=== PATIENT | male | born 1940 | race Caucasian/White ===

== ENCOUNTER 2017-07-16 13:30 | Inpatient (IN) | payer MEDICARE ==
[2017-07-23] MEDS ORDERED: ACETAMINOPHEN 1,000 MG/100 ML BTL IV ONE (06:00)
[2017-07-23] MEDS ORDERED: MECLIZINE 25 MG TABLET PO ONE (06:00)
[2017-07-23] MEDS ORDERED: FAMOTIDINE 20MG TABLET PO ONE (06:00)
[2017-07-23] MEDS ORDERED: CEFAZOLIN 2 Gram 2 GM/50 ML BAG IVPB ONE (06:00)
[2017-07-23] MEDS ORDERED: METOCLOPRAMIDE 10 MG TABLET PO ONE (06:00)
[2017-07-23] MEDS ORDERED: HYDROCODONE/APAP 5/325MG TABLET PO PRN (10:15)
[2017-07-23] MEDS ORDERED: SENNOSIDES/DOCUSATE SODIUM UD CAPSULE PO PRN (10:15)
[2017-07-23] MEDS ORDERED: METOCLOPRAMIDE HCL 10 MG/2 ML VIAL IVP PRN (10:15)
[2017-07-23] MEDS ORDERED: MAGNESIUM HYDROXIDE 30 ML UDC PO PRN (10:15)
[2017-07-23] MEDS ORDERED: AL HYDROX/MAG HYDROX 30ML UD PO PRN (10:15)
[2017-07-23] MEDS ORDERED: DIPHENHYDRAMINE HCL 25 MG CAPSULE PO PRN (10:15)
[2017-07-23] MEDS ORDERED: ZOLPIDEM TARTRATE 5 MG TABLET PO PRN (10:15)
[2017-07-23] MEDS ORDERED: ONDANSETRON HCL IV 4 MG/2 ML VIAL IVP PRN (10:15)
[2017-07-23] MEDS: HYDROCODONE/APAP 5/325MG TABLET PO PRN ×3 (12:00→23:35)
[2017-07-23] MEDS ORDERED: MORPHINE SULFATE 4MG/ML PREFILLED SYRINGE IVP ONE (13:18)
[2017-07-23] MEDS: DULOXETINE HCL 30 MG CAPSULE.DR PO SCH (14:38)
[2017-07-23] MEDS: BUSPIRONE 5 MG TABLET PO SCH ×2 (14:38→22:17)
[2017-07-23] MEDS: ATORVASTATIN 20 MG TABLET PO SCH (14:39)
[2017-07-23] MEDS: PANTOPRAZOLE SODIUM 40 MG TABLET PO SCH (14:39)
[2017-07-23] MEDS: LEVOTHYROXINE SODIUM 100 MCG TABLET PO SCH (14:39)
[2017-07-23] MEDS: TAMSULOSIN HCL 0.4 MG CAP.ER.24H PO SCH (14:39)
[2017-07-23] MEDS: CARBIDOPA/LEVODOPA 25MG/100MG TABLET PO SCH ×2 (14:39→14:50)
[2017-07-23] MEDS ORDERED: PROPOFOL 10 MG/ML VIAL IV ONE (15:36)
[2017-07-23] MEDS ORDERED: *PACU ONLY* KETAMINE HCL 10 MG/ML (20ML) VIAL IV ONE (15:36)
[2017-07-23] MEDS ORDERED: SUGAMMADEX SODIUM 200 MG/2 ML VIAL IV ONE (15:36)
[2017-07-23] MEDS ORDERED: SEVOFLURANE 250 ML INH ONE (15:36)
[2017-07-23] MEDS ORDERED: EPHEDRINE SULFATE 50 MG/ML ML IV ONE (15:36)
[2017-07-23] MEDS ORDERED: LIDOCAINE 2% MDV (20MG/ML) 20ML VIAL IV ONE (15:36)
[2017-07-23] MEDS ORDERED: ROCURONIUM BROMIDE 50MG/5ML VIAL IV ONE (15:36)
--- NOTE | 2017-07-23 15:48 | Rehab Evaluation ---
Patient Information - Patient Information Diagnosis: OA left hip Ordered Treatment: PT Evaluate and Treat Status: Initial Evaluation Surgery: Yes (YANETH left) Date of Surgery: 07/23/17 Past Medical/Surgical Hx: PAST MEDICAL/SURGICAL HISTORY Past Surgical History Total right hip. Low back surgery. Upper back surgery. Carpal tunnel ban. Stent 2013 Triple bypass August 2016. PMH - Respiratory Hx Respiratory Disorders No Hx Sleep Apnea Yes Hx of CPAP No PMH - Cardiovascular Hx Cardiovascular Disorders Yes Hx Abnormal EKG Yes Hx Cardiac Catheterization Yes Hx Hypertension Yes: on meds good control Hx Pacemaker/Defibrillator Yes Hx Coronary Artery Disease Yes Hx Coronary Artery Bypass Yes: 2016 triple Graft Hx Coronary Stent Yes: x's 1 2015? Exercise Tolerance Fair PMH - Neuro Hx Neurological Disorders No Hx Headaches Yes: occassionally PMH - GI Hx Gastrointestinal Disorders No Hx Gastroesophageal Reflux Yes: controlled with meds PMH - Hx Genitourinary Disorders No Hx Kidney Stones Yes Hx Prostate Problems Yes: BPH PMH - Endocrine Hx Endocrine Disorders Yes Hx Diabetes Yes Hx Thyroid Disease Yes Hx of IDDM Yes: started insulin early 2016 Comment: A1C 6.5 PMH - Musculoskeletal Hx Musculoskeletal Disorders Yes Hx Arthritis Yes Comment: RLS left hip pain PMH - Psych Hx Psychiatric Problems No Hx Anxiety Yes Hx Depression Yes PMH - Hematology/Oncology Hx Hematology/Oncology No Disorders Hx Anemia Yes Hx Blood Transfusion Reaction No Social History: Detail (Patient lives in one story house with spouse. Plans to go home tomorrow. Had right hip done three years ago and still has a lot of items that will help with this surgery. Has two to three steps into house and shower bench, walker, cane. Normal height toilet seat but did not have any trouble last time. Has grab bars, tub/shower combination situation in bathroom, hand-held shower head. Patient already scheduled for outpatient PT here at [facility] for Thursday.) Precautions: [place], Fall - Time With Patient Total Time Spent With Patient (Min): 30 Treatment Procedures: Detail (Patient seen bedside, aide walking with patient to bathroom with FWW with patient moving along normally with WBAT about 20 feet from bed to bathroom, then 20 feet back to bed. Sat edge of bed and discussed hip precautions and patient did some exercises seated but very sore and fatigued so assisted patient to lie down with only slight assist with left LE into bed. Patient able to pull self up in bed with trapeze. Patient then performed more exercises for hip with good tolerance: heel slides, hip abduction gently, quad and glut sets and ankle pumps. Replaced tray table, compressive stockings for LES and call light close. Advised patient of times for PT and OT tomorrow.) Subjective Information - Subjective Information Per Patient (As above in history) Objective Data - Pain Pain Present: Yes Pain Scale Used: Numeric (1 - 10) (8/10) - Mental Status Patient Orientation: Oriented x3 - Visual Perception Appears within normal limits for therapeutic activities - ROM Within normal limits (except left hip decreased a little: flexion about 60 degrees, abduction 25 degrees. Did not assess other motions.) - Strength/Tone Within normal limits (except left hip about 3-/5) - Coordination Appears within normal limits for therapeutic activities (Able to ambulate safely with FWW and CGA) - Bed Mobility Needs Assist (Only needed slight assist with getting left leg into bed and out of bed. Up in bed with trapeze.) - Transfers Independent (Verbal cues only for safety sit to stand and stand to sit.) - Balance Balance Sitting: Good Balance Standing: Good - Sensation Intact - Gait Detail (Patient ambulated with FWW about 20 feet times two to bathroom and back to bed. Stood to use toilet.) - Special Tests No Therapy Assessment - Therapy Assessment Detail (Patient has quite a lot of pain yet but moving well and willing to walk and increase mobility.) Patient Education - Patient Education Teaching Topic: Equipment Use, Exercise/Activity Response: Return Demonstration Teaching Method: Discussion, Demonstration Teaching Recipient: Patient Barriers To Learning: None Problem List - Problem List Physical Therapy Problem List: Detail (Decreased functional mobility at this time but able to ambulate short distances already and did get to bathroom. Quite a lot of stiffness left hip yet as demonstrated with exercises and pain fairly high yet.) Goals - Goals Physical Therapy Goals: Patient will be able to safely move supine to sit to stand, perform exercises for hip and walk with walker community distances, perform steps so can go home safely tomorrow. Prognosis - Prognosis Good (Should do well with good night's rest. Says did not sleep well night before surgery.) Plan - Plan Physical Therapy Plan: Continue PT BID day after surgery for gait training, transfers and exercises, reviewing hip precautions as needed. If patient does not pass skills to be discharged home, may need to be seen another time, if stays another night.
[2017-07-23] MEDS: CEFAZOLIN 2 Gram 2 GM/50 ML BAG IVPB SCH (16:57)
[2017-07-23] MEDS: RINGERS SOLUTION,LACTATED 1,000 ML IV SCH ×2 (19:25→19:46)
[2017-07-23] MEDS ORDERED: HYDROMORPHONE HCL 2 MG/ML VIAL IVP ONE (19:56)
[2017-07-23] MEDS ORDERED: LEVEMIR FLEXTOUCH 100 UNIT/ML INSULIN PEN SQ SCH (22:00)
[2017-07-23] MEDS ORDERED: CARBIDOPA/LEVODOPA 25MG/100MG TABLET PO SCH (22:00)
[2017-07-23] MEDS: FERROUS SULFATE 325 MG TAB PO SCH (22:17)
[2017-07-23] MEDS: ASPIRIN 325 MG TAB ENTERIC-COATED PO SCH (22:17)
[2017-07-24] MEDS: CEFAZOLIN 2 Gram 2 GM/50 ML BAG IVPB SCH ×2 (00:36→09:35)
[2017-07-24] MEDS: RINGERS SOLUTION,LACTATED 1,000 ML IV SCH (04:26)
[2017-07-24] MEDS: HYDROCODONE/APAP 5/325MG TABLET PO PRN ×2 (06:01→13:23)
[2017-07-24] MEDS: PANTOPRAZOLE SODIUM 40 MG TABLET PO SCH (06:06)
[2017-07-24] MEDS: LEVOTHYROXINE SODIUM 100 MCG TABLET PO SCH (06:06)
--- NOTE | 2017-07-24 09:37 | Physical Therapy Tx Note ---
Physical Therapy Tx Note - Treatment Note Tolerated: Good Total Time Spent With Patient: 20 Physical Therapy Tx Note: Detail (The patient had complaints of level 5 pain in L hip. The patient acheived supine to sit independently following THR precautions. The patient was independent with sit to and from stand transfer.The patient ambulated independently with wheeled walker a distance of 13 feet x1,to bathroom and 50 feet WBAT on the L LE. The patient declined ambulating on the stairs this am. The patient requested to sit in a chair. The patient was left in chair with present and call light in reach. Nursing staff was notified.) Physical Therapy Problem List: Detail (Decreased functional mobility at this time but able to ambulate short distances already and did get to bathroom. Quite a lot of stiffness left hip yet as demonstrated with exercises and pain fairly high yet.) Physical Therapy Goals: Patient will be able to safely move supine to sit to stand, perform exercises for hip and walk with walker community distances, perform steps so can go home safely tomorrow. Physical Therapy Plan: Will see patient this afternoon for gait training on the stairs, anticipate discharge from inpatient PT this pm.
[2017-07-24] MEDS: BUSPIRONE 5 MG TABLET PO SCH (09:41)
[2017-07-24] MEDS: ASPIRIN 325 MG TAB ENTERIC-COATED PO SCH (09:42)
[2017-07-24] MEDS: FERROUS SULFATE 325 MG TAB PO SCH (09:42)
[2017-07-24] MEDS: TAMSULOSIN HCL 0.4 MG CAP.ER.24H PO SCH (09:44)
[2017-07-24] MEDS: ATORVASTATIN 20 MG TABLET PO SCH (09:45)
[2017-07-24] MEDS: DULOXETINE HCL 30 MG CAPSULE.DR PO SCH (09:48)
[2017-07-24] MEDS ORDERED: LISINOPRIL 5 MG TABLET PO SCH (10:00)
[2017-07-24] MEDS ORDERED: ACETAMINOPHEN 325 MG TAB PO PRN (10:15)
--- NOTE | 2017-07-24 12:00 | Rehab Evaluation ---
Patient Information - Patient Information Diagnosis: OA left hip Ordered Treatment: OT Evaluate and Treat Status: Initial Evaluation Surgery: Yes (YANETH left) Date of Surgery: 07/23/17 Past Medical/Surgical Hx: PAST MEDICAL/SURGICAL HISTORY Past Surgical History Total right hip. Low back surgery. Upper back surgery. Carpal tunnel ban. Stent 2013 Triple bypass August 2016. PMH - Respiratory Hx Respiratory Disorders No Hx Sleep Apnea Yes Hx of CPAP No PMH - Cardiovascular Hx Cardiovascular Disorders Yes Hx Abnormal EKG Yes Hx Cardiac Catheterization Yes Hx Hypertension Yes: on meds good control Hx Pacemaker/Defibrillator Yes Hx Coronary Artery Disease Yes Hx Coronary Artery Bypass Yes: 2016 triple Graft Hx Coronary Stent Yes: x's 1 2015? Exercise Tolerance Fair PMH - Neuro Hx Neurological Disorders No Hx Headaches Yes: occassionally PMH - GI Hx Gastrointestinal Disorders No Hx Gastroesophageal Reflux Yes: controlled with meds PMH - Hx Genitourinary Disorders No Hx Kidney Stones Yes Hx Prostate Problems Yes: BPH PMH - Endocrine Hx Endocrine Disorders Yes Hx Diabetes Yes Hx Thyroid Disease Yes Hx of IDDM Yes: started insulin early 2016 Comment: A1C 6.5 PMH - Musculoskeletal Hx Musculoskeletal Disorders Yes Hx Arthritis Yes Comment: RLS left hip pain PMH - Psych Hx Psychiatric Problems No Hx Anxiety Yes Hx Depression Yes PMH - Hematology/Oncology Hx Hematology/Oncology No Disorders Hx Anemia Yes Hx Blood Transfusion Reaction No Premorbid Status: Detail (Pt was independent with all I/ADL tasks prior to sx.) Social History: Detail (Patient lives in one story house with spouse and has 2- 3 steps to enter and no railings. Bathroom is equipped with a tub/shower, hand held shower head, grab bars (near toilet and in shower), shower bench (all 4 legs inside tub/shower), and standard toilet. He has a 2WW, cane, and a hip kit. ) Precautions: [place], Fall, Other (Hip Precaution for LLE) - Time With Patient Total Time Spent With Patient (Min): 20 Treatment Procedures: Detail (Initial Evaluation: Low Complexity. Pt left supine in bed with bedside table and call light in reach and all needs met. Spouse also present during evaluation.) Subjective Information - Subjective Information Per Patient (Pt reported that pain increased with supine>sit.) Objective Data - Pain Pain Present: Yes Pain Scale Used: Numeric (1 - 10) (Pt reported pain as 6/10 at rest in L hip.) - Visual Perception Appears within normal limits for therapeutic activities - ROM Within normal limits (BUE AROM WNL in all planes.) - Coordination Appears within normal limits for therapeutic activities - Bed Mobility Independent (Supine<>SS EOB CGA to guide BLE. Head of bed raised and use of bed rail for supine>SS EOB but SS EOB>Supine was completed without head of bed raised or use of bed rail.) - Transfers Independent (SS EOB<>standing with 2WW Indp. with proper hand placement.) - Balance Balance Sitting: Good Balance Standing: Fair (Requires use of walker for support at this time.) - ADL's/IADL's Detail (Educated pt regarding hip precautions, modified LB dressing techniques, and AE prior to participation in ADL tasks. Pt returned demonstration and verbalized understanding of hip precautions, modified LB dressing techniques, and AE. Pt donned pants and L sock Indp. while utilizing modified LB dressing techniques and AE (music coordinator, sock aid). Toileting completed with set up in SS EOB with use of urinal.) Therapy Assessment - Therapy Assessment Detail (ADL tasks completed Indp. and no longer requires inpatient skilled OT services at this time. Pt's home enviornment is set up with optimal adaptive equipment/devices to ensure maximal independence during recovery process.) Patient Education - Patient Education Teaching Topic: Precautions, Other (Modified LB dressing techniques and AE ( music coordinator, sock aid)) Response: Return Demonstration, Verbalize Understanding Teaching Method: Discussion, Demonstration Teaching Recipient: Patient, Family Barriers To Learning: None Problem List - Problem List Physical Therapy Problem List: Detail (Decreased functional mobility at this time but able to ambulate short distances already and did get to bathroom. Quite a lot of stiffness left hip yet as demonstrated with exercises and pain fairly high yet.) Goals - Goals Physical Therapy Goals: Patient will be able to safely move supine to sit to stand, perform exercises for hip and walk with walker community distances, perform steps so can go home safely tomorrow. Prognosis - Prognosis Good (Pending adherence to hip precautions.) Plan - Plan Physical Therapy Plan: Will see patient this afternoon for gait training on the stairs, anticipate discharge from inpatient PT this pm. Occupational Therapy Plan: D/C from inpatient skilled OT services at this time. Pt reported having no questions or concerns regarding return home.
--- NOTE | 2017-07-24 13:24 | Physical Therapy Tx Note ---
Physical Therapy Tx Note - Treatment Note Tolerated: Good Total Time Spent With Patient: 20 Physical Therapy Tx Note: Detail (The patient was up in a chair when PT arrived. The patient was independent with sit to stand transfer and ambulated 50 feet x 1 WBAT on the L LE. The patient ambulated on 3 steps with verbal cue to technique and supervision for safety. The patient returned to his room and was left with and nursing staff.) Physical Therapy Problem List: Detail (Decreased functional mobility at this time but able to ambulate short distances already and did get to bathroom. Quite a lot of stiffness left hip yet as demonstrated with exercises and pain fairly high yet.) Physical Therapy Goals: GOALS MET:Patient will be able to safely move supine to sit to stand, perform exercises for hip and walk with walker community distances , perform steps so can go home safely tomorrow. Physical Therapy Plan: All inpatient PT goals have been met. The patient is to continue with outpatient PT tomorrow.
--- NOTE | 2017-07-27 12:20 | Operative Note ---
DATE OF SURGERY: 07/23/2017 Surgeon: Mj Fitzpatrick DO PREOPERATIVE DIAGNOSIS: Primary osteoarthritis of the left hip. POSTOPERATIVE DIAGNOSIS: Primary osteoarthritis of the left hip. OPERATION: Left total hip arthroplasty. DESCRIPTION OF PROCEDURE: This 77-year-old male was taken to the operating room and placed in the supine position on the operating room table. General anesthesia was induced. He was then placed in the right lateral decubitus position, bolstered perpendicular to the floor, and all bony prominences well padded. The left hip was prepped with Hibiclens and draped in the usual sterile fashion. All scrub personnel wore personal isolation suits. A lateral hip incision was made dissecting down through the skin and subcutaneous tissue. Hemostasis was obtained with the electrocautery. The tensor was split in line with the skin incision. The gluteus natasha muscle was also split and a self-retaining hip retractor was placed. Subsequently, incision was made in the short rotators, and these were divided from the posterior aspect of the neck of the femur and exposure was excellent after we elevated the gluteus medius, placed a 964 Steinmann pin superiorly above the hip to be used as a retractor. Two additional Steinmann pins were placed, one posterosuperiorly and one posteroinferiorly. A tracy was made in the greater trochanter and measured to the proximal pin. This distance was restored at the completion of the procedure. The hip was dislocated and the neck amputated. A Cobra retractor was placed anteriorly. Significant osteophyte formation was present posteroinferiorly and this was removed with an osteotome. We started reaming with a 46 mm reamer up to a size 50 in 1 mm increments. Two small cysts were noticed in the acetabulum. These were curetted and filled with bone from the reamer. The trial liner was subsequently placed and this was seen to be the appropriate size. Subsequently a size 50 Trident cup was impacted into place at about 40 degrees of abduction and approximately 15-20 degrees of anteversion. The cup was solid. The trial liner was subsequently placed. We then directed our attention to the proximal femur and using a box osteotome, we cut the proximal femur and subsequently passed a hand silvering supervisor down the shaft. The only broach that we could really get down was a size 5. Subsequently a size 5 broach was used to trial, and this was very tight. Subsequently a size +2.5 head was used which restored anatomic length with excellent stability of the hip. For added security, we elected to place a 10-degree hooded liner posterosuperiorly. Subsequently, trial components were removed and the hip again copiously irrigated with pulse lavage, lactated Ringer's solution. The 10-degree hooded X3 liner was impacted into place with the morin in the posterosuperior position. We subsequently placed a size 5 collared Secur-Fit femoral component followed by the insertion of a size 36 mm +2.5 L fit head. Once this had been impacted into place, the hip was reduced and again taken through range of motion and found to be stable. The wound copiously irrigated with pulse lavage, lactated Ringer's solution, and a drain placed through a separate stable incision. The short rotators were repaired with #5 Ethibond suture through drill holes through the posterior aspect of the greater trochanter. We then closed the tensor with a #2 Vicryl, the subcutaneous tissue closed with 0 Vicryl, skin was stapled. Sterile dressings were applied and the patient taken to the recovery room in satisfactory condition. GROSS PATHOLOGY: This patient demonstrated severe osteoarthritis, full-thickness articular cartilage loss being noted. In addition, marked osteophyte formation was present posteroinferiorly on the left hip. CC: Lonnie Monroy MD [facility] [facility]
--- NOTE | 2017-07-27 12:21 | Discharge Summary ---
DATE OF SERVICE: 07/24/2017. DATE OF ADMISSION: 07/23/2017. DATE OF DISCHARGE: 07/24/2017. ADMITTING DIAGNOSIS: Osteoarthritis of the left hip. DISCHARGE DIAGNOSIS: Osteoarthritis of the left hip. OPERATIVE PROCEDURE: Elective left total hip arthroplasty. HOSPITAL COURSE: This 77-year-old male was taken to the operating room and placed in supine position on the operating room table, then placed in the right lateral decubitus position, where the surgery was performed without difficulty. A drain was placed during the time of the surgery and removed the 1st postoperative day. His pain was controlled with narcotic medication, and was discharged home with [place] 5/325 mg #80 1 or 2 every 6 hours as necessary for pain. He was instructed to take his aspirin the 81 mg daily at home. He was instructed to weak his SRIDHAR hose during the day and remove them at night. He will have outpatient physical therapy. Routine wound care instructions were given, and he will follow up in 2 weeks. Should he have any problems prior to being seen, he was instructed to call my office. FIORELLA
== END 2017-07-24 15:40 | disposition home or self-care (01) | DRG 470 ==
LOC: MEDSURG 07-23 05:47
PROVIDERS: ADMIT Orthopaedic Surgery; ATTEND Orthopaedic Surgery
PROC: 0SRB06A Replacement of Left Hip Joint with Oxidized Zirconium on Polyethylene Synthetic Substitute, Uncemented, Open Approach (ICD-10-PCS; principal; 2017-07-23 08:00)
DX: M16.12 Unilateral primary osteoarthritis, left hip (principal); E78.00 Pure hypercholesterolemia, unspecified; E11.9 Type 2 diabetes mellitus without complications; Z79.4 Long term (current) use of insulin; K21.9 Gastro-esophageal reflux disease without esophagitis; I10 Essential (primary) hypertension; G25.81 Restless legs syndrome; D64.9 Anemia, unspecified
CPT/HCPCS: 36416; 82948; 97116; C1776; J2274; J3490; J7120

== ENCOUNTER 2017-07-28 08:37 | Emergency (ER) | payer MEDICARE ==
[2017-07-28 08:53] LABS: URINE APPEARANCE CLEAR; URINE BILIRUBIN NEGATIVE (NEGATIVE); URINE BLOOD NEGATIVE (NEGATIVE); URINE KETONE NEGATIVE (NEGATIVE); URINE LEUKOCYTE ESTERASE TRACE (NEGATIVE)
[2017-07-28 08:56] LABS: URINE COLOR DARK YELLOW
--- NOTE | 2017-07-28 08:58 | Emergency Department Record ---
History of Present Illness - General Stated complaint: PAIN WITH URINATION Time Seen by Provider: 07/28/17 08:37 Source: Patient, Family Mode of Arrival: Ambulatory Limitations: No limitations - History of Present Illness Initial comments: 77 yo male presents with discomfort with urination that started during his hospital stay after hip replacement surgery. He has a burning sensation when he urinates. He denies any urologic disease history. No fever. He has a sense of urgency. He has small frequent urinations. He is circumcised. He does not think he had a guzman during surgery. NO hematuria. He has tried Azo for 2 days without relief. No NVD. He is eating and drinking normally. He had a normal bowel movement this am but has had constipation on a mild level. MD Complaint: Dysuria -: Days(s) Location: Penis Radiation: None Severity: Moderate Quality: Aching Consistency: Constant Improves with: None Worsens with: Urination Reports: Denies other symptoms - Related Data Previous Rx's Medication Instructions Recorded Meclizine HCl [Antivert] 25 mg PO Q8H #30 tablet 12/09/15 Cephalexin [Keflex] 500 mg PO TID #21 cap 07/28/17 Allergies Allergy/AdvReac Type Severity Reaction Status Date / Time No Known Drug Allergies Allergy Verified 07/28/17 10:32 Review of Systems Constitutional: Denies: Chills, Fever, Malaise, Weakness Eyes: Denies: Eye discharge, Eye pain ENT: Denies: Congestion, Throat pain Respiratory: Denies: Cough Cardiovascular: Denies: Chest pain, Palpitations, Syncope Endocrine: Denies: Fatigue Gastrointestinal: Reports: As per HPI, Abdominal pain (suprpubic at times). Denies: Diarrhea, Nausea, Vomiting Genitourinary: Reports: Dysuria, Frequency, Incontinence (dribbles at times), Urgency. Denies: Discharge, Hematuria, Retention, Testicular pain, Testicular mass Musculoskeletal: Denies: Arthralgia, Back pain, Joint swelling, Myalgia, Neck pain Skin: Denies: Bruising, Change in color, Rash Neurological: Denies: Headache, Numbness, Weakness Psychiatric: Denies: Anxiety Hematological/Lymphatic: Denies: Easy bleeding, Easy bruising Past Medical History - SOCIAL HISTORY Smoking Status: Former smoker Drug Use: None - RESPIRATORY Hx Respiratory Disorders: No Hx Sleep Apnea: Yes Hx of CPAP: No - CARDIOVASCULAR Hx Cardio Disorders: Yes Hx Abnormal EKG: Yes Hx Cardiac Cath: Yes Hx Hypertension: Yes (on meds good control) Hx Pacemaker/Defib: Yes Hx Coronary Artery Disease: Yes Hx Coronary Artery Bypass Graft: Yes (2016 triple) Hx Coronary Stent: Yes (x's 1 2015?) - NEURO Hx Neuro Disorders: No Hx Headaches: Yes (occassionally) - GI Hx GI Disorders: No Hx Reflux: Yes (controlled with meds) - Hx Genitourinary Disorders: No Hx Kidney Stones: Yes Hx Prostate Problems: Yes (BPH) - ENDOCRINE Hx Endocrine Disorders: Yes Hx Diabetes: Yes - MUSCULOSKELETAL Hx Musculoskeletal Disorders: Yes Hx Arthritis: Yes Comment:: RLS left hip pain - PSYCH Hx Psych Problems: No Hx Anxiety: Yes Hx Depression: Yes - HEMATOLOGY/ONCOLOGY Hx Hematology/Oncology Disorders: No Hx Anemia: Yes Hx Blood Transfusions: Yes Hx Blood Transfusion Reaction: No Family Medical History Hx Heart Disease: Father, Mother Hx Resp Disorders: Mother Hx Stroke: Mother Physical Exam - General General Appearance: Alert, Oriented x3, Cooperative, No acute distress Limitations: No limitations - Head Head exam: Atraumatic, Normal inspection - Eye Eye exam: Normal appearance. negative: Conjunctival injection, Scleral icterus - ENT ENT exam: Normal exam, Mucous membranes moist Ear exam: Normal external inspection Nasal Exam: Normal inspection Mouth exam: Normal external inspection - Neck Neck exam: Normal inspection - Respiratory Respiratory exam: Normal lung sounds bilaterally. negative: Respiratory distress - Cardiovascular Cardiovascular Exam: Regular rate, Normal rhythm, Normal heart sounds - GI/Abdominal GI/Abdominal exam: Soft, Tenderness, Other (soft abdomen, non tender at this time except tender in the suprpubic area). negative: Distended, Guarding, Rebound, Rigid - exam: Circumcision, Normal inspection. negative: Scrotal swelling, Testicular tenderness, Urethral discharge - Extremities Extremities exam: Normal inspection - Back Back exam: Denies: CVA tenderness (R), CVA tenderness (L) - Neurological Neurological exam: Alert, Oriented X3 - Psychiatric Psychiatric exam: Normal affect, Normal mood - Skin Skin exam: Dry, Intact, Normal color, Warm Course - Reevaluation(s) Reevaluation #1: 07/28/17 08:59 The patient void and felt like it was complete Bladder scan demonstrated approximately 900ml Recommend labs and guzman 07/28/17 09:04 UA is Nitrite and LE positive 07/28/17 09:46 The BMP was reviewed. CR is 1.9 with baseline of 1.7 Hgb is 8.8 (first post op check) 07/28/17 10:18 The patient remains very comfortable after bladder drainage He was referred to urology. He was instructed on guzman leg bag use We discussed follow up and reasons to return to the ED. 07/28/17 10:28 At the time of DC I again asked if the patient has any questions. He now states he is concerned about LLE swelling after his left hip surgery. I recommend venous doppler at this time. 07/28/17 11:35 No DVT identified on the venous doppler. 07/28/17 17:06 The patient will be seen in one week in the [facility]. Medical Decision Making - Lab Data Result diagrams: 07/28/17 09:02 07/28/17 09:02 Disposition Disposition: Discharge Clinical Impression: Urinary retention Disposition: Home, Self-Care Condition: (1) Good Instructions: Urinary Retention in Men (ED) Additional Instructions: You will be contacted for your follow up appointment with urology Return to the ED if you have any fever, pain, difficulty with the leg bag draining the guzman Take the antibiotics while the catheter is in place You should have your blood counts and kidney function rechecked with your doctor in the next week Continue your Flomax Prescriptions: Cephalexin [Keflex] 500 mg PO TID #21 cap Referrals: NEHAL GODDARD M.D. [MEDICAL DOCTOR] - [facility] [Provider Group] Forms: Patient Portal Access Time of Disposition: 11:35 Quality - Quality Measures Quality Measures: N/A - Blood Pressure Screening Does Patient Have Any of the Following: No Blood Pressure Classification: Normal BP Reading Systolic Measurement: 116 Diastolic Measurement: 66 Screening for High Blood Pressure: < Normal BP, F/U Not Required > [G8783] Pre-Hypertensive Follow-up Interventions: Referral to alternative/primary care provider.
[2017-07-28] MEDS ORDERED: LIDOCAINE UROJECT 10 ML APPL MM ONE (09:00)
[2017-07-28] MEDS ORDERED: ACETAMINOPHEN 1,000 MG/100 ML BTL IVPB ONE (09:02)
[2017-07-28] MEDS ORDERED: CEFTRIAXONE SODIUM 1 GM in 0.9 % SODIUM CHLORIDE 100ML 100 ML IVPB ONE (09:03)
[2017-07-28 09:09] LABS: URINE BACTERIA FEW; URINE EPITHELIAL CELLS 0 - 2 (FEW); URINE NITRITE POSITIVE (NEGATIVE); URINE RBC NONE SEEN (NONE SEEN); URINE WBC 0 - 2 (0-2/hpf)
[2017-07-28 09:17] LABS: HEMOGLOBIN 8.8 gm/dl (14.0-18.0); MEAN CORPUSCULAR HEMOGLOBIN 29.2 pg (27-33); MEAN CORPUSCULAR HGB CONC 31.4 g/dl (32-36); PLATELET COUNT 318 K/uL (130-400); RED BLOOD COUNT 3.01 M/uL (4.40-5.70); RED CELL DISTRIBUTION WIDTH 13.3 % (11.5-14.5); WHITE BLOOD COUNT W/O DIFF 7.8 K/uL (4.2-12.2)
[2017-07-28 09:32] LABS: HYPOCHROMIA 1+; PLATELET ESTIMATE NORMAL (NORMAL)
[2017-07-28 09:41] LABS: CREATININE 1.9 mg/dL (0.7-1.2)
--- NOTE | 2017-07-29 15:09 | US VENOUS DOPPLER REPORT ---
EXAM: EMERGENCY VENOUS DOPPLER ULTRASOUND OF THE LEFT LOWER EXTREMITY HISTORY: POSTOP LEFT HIP, SWELLING LEG AND KNEE FOR TWO DAYS. LEFT YANETH WAS DONE ON 07/23/17. TECHNIQUE: Venous Doppler ultrasound of the left lower extremity was performed with color flow and spectral analysis. Compression and flow augmentation maneuvers were utilized in the thigh and popliteal region as well. Comparison: None. FINDINGS: No definite DVT identified in the left lower extremity. Flow was seen throughout. Flow augmentation and compression was evident in the thigh and popliteal region as well. Note was made of some apparent edema in the subcutaneous tissues diffusely throughout the left lower extremity. Some borderline enlarged left inguinal nodes were incidentally seen which may simply be reactive in nature. IMPRESSION: NO DVT IDENTIFIED IN THE LEFT LOWER EXTREMITY. SOME GENERALIZED EDEMA IS NOTED IN THE SUBCUTANEOUS TISSUES, HOWEVER. JOB NUMBER: [id number] [facility]
== END 2017-07-28 11:47 | disposition home or self-care (01) ==
LOC: ER 08:37
DX: R33.9 Retention of urine, unspecified (principal); R30.0 Dysuria; R22.42 Localized swelling, mass and lump, left lower limb; I10 Essential (primary) hypertension; E11.9 Type 2 diabetes mellitus without complications; Z79.4 Long term (current) use of insulin; Z96.643 Presence of artificial hip joint, bilateral; Z87.891 Personal history of nicotine dependence; Z95.0 Presence of cardiac pacemaker
CPT/HCPCS: 80048; 81001; 85027; 96365; 96366; 96368; 99284